=== PATIENT | female | born 1975 | race Caucasian/White ===

== ENCOUNTER 2020-08-19 19:30 | Emergency (ER) | payer BC, OTHER ==
[~2020-08-19] VITALS: Ht 167.6 cm; Wt 84.3 kg
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
[2020-08-19] MEDS ORDERED: NAPR-682 PO (21:18)
[2020-08-19 21:20] VITALS: BP 133/72
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
== END 2020-08-19 21:22 | disposition home or self-care (01) ==
LOC: ER 19:30
DX: S20.212A Contusion of left front wall of thorax, initial encounter (principal); R10.12 Left upper quadrant pain; J45.909 Unspecified asthma, uncomplicated; V49.49XA Driver injured in collision with other motor vehicles in traffic accident, initial encounter; Y93.I9 Activity, other involving external motion; Y92.488 Other paved roadways as the place of occurrence of the external cause; Y99.8 Other external cause status
CPT/HCPCS: 71101; 99283